=== PATIENT | female | born 1980 | race Caucasian/White ===

== ENCOUNTER 2017-06-16 10:15 | Emergency (ER) | payer BC ==
--- NOTE | 2017-06-16 12:12 | UC ---
FLU HPI - HPI Summary HPI Summary: has the flu-now she has a couple of days of worsening body aches, chills , cough and congestion - History of Current Complaint Chief Complaint: UCGeneralIllness Stated Complaint: FLU LIKE SYMPTOMS Time Seen by Provider: 06/16/17 12:10 Hx Obtained From: Patient Hx Last Menstrual Period: "at the end of March" ?: No - has a 6 months old, is on BCP Onset/Duration: Sudden Onset, Lasting Days, Still Present Severity Currently: Mild Severity Initially: Mild Pain Intensity: 0 Associated Signs & Symptoms: Positive: Fever, Myalgia, Cough, Nasal Congestion, Headache Related Hx: Possible Flu/Infectious Exposure - Allergy/Home Medications Allergies/Adverse Reactions: Allergies Allergy/AdvReac Type Severity Reaction Status Date / Time No Known Allergies Allergy Verified 06/16/17 12:02 Home Medications: Home Medications Dm/P-Ephed/Acetaminoph/Doxylam [Lydia-G[place]wood Plus Cold+Flu Pkt] 1 pow PO Q4H PRN 06/16/17 [History Confirmed 06/16/17] Mercaptopurine TAB* [Purinethol TAB*] 75 mg PO DAILY 06/16/17 [History Confirmed 06/16/17] PMH/Surg Hx/FS Hx/Imm Hx Previously Healthy: No - Crohns GI/ History: Other Other GI/ History: Crohns - Surgical History Surgical History: None - Family History Known Family History: Positive: Hypertension - Social History Occupation: Employed Full-time - teacher Lives: With Family Alcohol Use: None Substance Use Type: None Smoking Status (MU): Never Smoked Tobacco Review of Systems Constitutional: Fever - subjective, Chills, Fatigue Skin: Negative Eyes: Negative ENT: Nasal Discharge Respiratory: Cough Cardiovascular: Negative Gastrointestinal: Negative Genitourinary: Negative Motor: Negative Neurovascular: Negative Musculoskeletal: Arthralgia, Myalgia Neurological: Headache Psychological: Negative Is Patient Immunocompromised?: No All Other Systems Reviewed And Are Negative: Yes Physical Exam Triage Information Reviewed: Yes Appearance: Well-Appearing, No Pain Distress, Well-Nourished Vital Signs: Initial Vital Signs Temp 97.8 F 06/16/17 12:00 Pulse 74 06/16/17 12:00 Resp 16 06/16/17 12:00 BP 102/61 06/16/17 12:00 Pulse Ox 100 06/16/17 12:00 Vital Signs Reviewed: Yes Eye Exam: Normal Eyes: Positive: Conjunctiva Clear ENT Exam: Normal ENT: Positive: Normal ENT inspection, Hearing grossly normal, Pharynx normal, Nasal congestion, Nasal drainage, TMs normal, Uvula midline. Negative: Tonsillar swelling, Tonsillar exudate, Trismus, Muffled voice, Hoarse voice, Dental tenderness, Sinus tenderness Dental Exam: Normal Neck exam: Normal Neck: Positive: Supple, Nontender, No Lymphadenopathy Respiratory Exam: Normal Respiratory: Positive: Chest non-tender, Lungs clear, Normal breath sounds, No respiratory distress, No accessory muscle use Cardiovascular Exam: Normal Cardiovascular: Positive: RRR, No Murmur, Pulses Normal, Brisk Capillary Refill Musculoskeletal Exam: Normal Musculoskeletal: Positive: Strength Intact, ROM Intact, No Edema Neurological Exam: Normal Neurological: Positive: Alert, Muscle Tone Normal Psychological Exam: Normal Skin Exam: Normal Diagnostics - Laboratory Diagnostic Studies Completed/Ordered: Influenza A (+) Flu Course/Dx - Course Course Of Treatment: Tamiflu, increase fluids, tylenol, ibuprofen follow with pcp - Differential Dx/Diagnosis Provider Diagnoses: Influenza A Discharge - Discharge Plan Condition: Stable Disposition: HOME Prescriptions: Oseltamivir CAP* [Tamiflu CAP*] 75 mg PO BID #10 cap Patient Education Materials: Influenza (ED) Forms: *Work Release Referrals: [facility] [Outside] - If Needed
== END 2017-06-16 13:05 | disposition home or self-care (01) ==
LOC: UCCORT 10:15
DX: J09.X2 Influenza due to identified novel influenza A virus with other respiratory manifestations (principal); Z20.828 Contact with and (suspected) exposure to other viral communicable diseases
CPT/HCPCS: 87502; 99212; G0463

== ENCOUNTER 2018-03-03 07:31 | Emergency (ER) | payer BC ==
[2018-03-03 07:52] VITALS: BP 102/53
--- NOTE | 2018-03-03 08:09 | UC ---
Throat Pain/Nasal [place]aine HPI - HPI Summary HPI Summary: Pt presents with c/o nasal congestion, cough, sinus pressure, malaise and fever that has been "off and on" X 4 weeks. - History of Current Complaint Chief Complaint: UCRespiratory Stated Complaint: CONGESTION,SORE THROAT,L EAR PAIN Time Seen by Provider: 03/03/18 07:41 Hx Obtained From: Patient Hx Last Menstrual Period: unknown ?: No Onset/Duration: Sudden Onset, Lasting Weeks, Still Present Severity: Moderate Pain Intensity: 0 Cough: Nonproductive Associated Signs & Symptoms: Positive: Sinus Discomfort, Fever - Epiglottits Risk Factors Epiglottis Risk Factors: Negative - Allergies/Home Medications Allergies/Adverse Reactions: Allergies Allergy/AdvReac Type Severity Reaction Status Date / Time No Known Allergies Allergy Verified 03/03/18 07:42 Home Medications: Home Medications Multivitamins/Minerals TAB* [Theragran/minerals TAB*] 1 tab PO DAILY 03/03/18 [ History Confirmed 03/03/18] PMH/Surg Hx/FS Hx/Imm Hx Previously Healthy: Yes GI/ History: Other - IBS Other GI/ History: IBS - Surgical History Surgical History: None - Family History Known Family History: Positive: Hypertension - Social History Occupation: Employed Full-time Lives: With Family Alcohol Use: None Substance Use Type: None Smoking Status (MU): Never Smoked Tobacco Have You Smoked in the Last Year: No Review of Systems Constitutional: Fever, Chills, Fatigue Skin: Negative Eyes: Negative ENT: Sore Throat, Sinus Congestion, Sinus Pain/Tenderness Respiratory: Cough Cardiovascular: Negative Gastrointestinal: Negative Genitourinary: Negative Motor: Negative Neurovascular: Negative Musculoskeletal: Myalgia Neurological: Headache Psychological: Negative Is Patient Immunocompromised?: No All Other Systems Reviewed And Are Negative: Yes Physical Exam Triage Information Reviewed: Yes Appearance: Ill-Appearing Vital Signs: Initial Vital Signs Temp 99.7 F 03/03/18 07:45 Pulse 109 03/03/18 07:45 Resp 16 03/03/18 07:45 BP 102/53 03/03/18 07:45 Pulse Ox 98 03/03/18 07:45 Vital Signs Reviewed: Yes Eye Exam: Normal ENT: Positive: Nasal congestion, Nasal drainage, Sinus tenderness Dental Exam: Normal Neck exam: Normal Respiratory Exam: Normal Cardiovascular Exam: Normal Musculoskeletal Exam: Normal Neurological Exam: Normal Psychological Exam: Normal Skin Exam: Normal Diagnostics - Laboratory Diagnostic Studies Completed/Ordered: rapid flu: negative Throat Pain/Nasal Course/Dx - Differential Dx/Diagnosis Differential Diagnosis/HQI/PQRI: Influenza, Sinusitis, URI Provider Diagnoses: sinusitis Discharge - Sign-Out/Discharge Documenting (check all that apply): Patient Departure All imaging exams completed and their final reports reviewed: No Studies - Discharge Plan Condition: Stable Disposition: HOME Prescriptions: Amoxicillin PO (*) [Amoxicillin 875 MG (*)] 875 mg PO Q12H #20 tab Guaifenesin/Pseudoephedrne HCl [Mucinex D ER 600-60 mg Tablet] 1 each PO Q12H # 14 tab.er.12h Patient Education Materials: Sinusitis (ED) Referrals: [facility] [Outside] - If Needed No Primary Care Phys,NOPCP [Primary Care Provider] - Additional Instructions: Please follow up with your PCP as soon as needed. If you do not have a PCP please, establish care with one as soon as possible. - Billing Disposition and Condition Condition: STABLE Disposition: Home
== END 2018-03-03 08:22 | disposition home or self-care (01) ==
LOC: UCCORT 07:31
DX: J32.9 Chronic sinusitis, unspecified (principal); K58.9 Irritable bowel syndrome, unspecified
CPT/HCPCS: 99212; G0463

== ENCOUNTER 2019-03-23 15:34 | Emergency (ER) | payer BC ==
[2019-03-23 15:51] VITALS: BP 119/77
--- NOTE | 2019-03-23 16:15 | UC ---
Laceration HPI - HPI Summary HPI Summary: Pt presents with c/o laceration to left thumb. Pt reports that she was reaching in one of her kitchendrawers and cut her left thimb on metal mandolin slicer. Pt states that she is UTD with tetanus. - History Of Current Complaint Chief Complaint: Suman Stated Complaint: LACERATION LEFT THUMB Time Seen by Provider: 03/23/19 15:53 Hx Obtained From: Patient Hx Last Menstrual Period: 2 weeks ago Laceration Location: Finger - left thumb Mechanism Of Injury: Sharp Trauma Onset/Duration: Sudden Onset Severity: Mild Pain Intensity: 1 Aggravating Factors: Position, Movement Related History: Dominant Hand Right - Allergies/Home Medications Allergies/Adverse Reactions: Allergies Allergy/AdvReac Type Severity Reaction Status Date / Time No Known Allergies Allergy Verified 03/23/19 15:45 Home Medications: Home Medications FLUoxetine CAP* [Prozac CAP*] 1 cap DAILY 03/23/19 [History Confirmed 03/23/19] PMH/Surg Hx/FS Hx/Imm Hx Previously Healthy: Yes - Surgical History Surgical History: None - Family History Known Family History: Positive: Hypertension - Social History Occupation: Employed Full-time Lives: With Family Alcohol Use: None Substance Use Type: None Smoking Status (MU): Never Smoked Tobacco Have You Smoked in the Last Year: No - Immunization History Vaccination Up to Date: Yes Review of Systems All Other Systems Reviewed And Are Negative: Yes Constitutional: Positive: Negative Skin: Positive: Other - laceration to left thumb Eyes: Positive: Negative ENT: Positive: Negative Respiratory: Positive: Negative Cardiovascular: Positive: Negative Gastrointestinal: Positive: Negative Genitourinary: Positive: Negative Motor: Positive: Negative Neurovascular: Positive: Negative Musculoskeletal: Positive: Negative Neurological: Positive: Negative Psychological: Positive: Negative Is Patient Immunocompromised?: No Physical Exam Triage Information Reviewed: Yes Appearance: Well-Appearing Vital Signs: Initial Vital Signs Temp 98.8 F 03/23/19 15:46 Pulse 88 03/23/19 15:46 Resp 16 03/23/19 15:46 BP 119/77 03/23/19 15:46 Pulse Ox 96 03/23/19 15:46 Vital Signs Reviewed: Yes Eye Exam: Normal ENT Exam: Normal Dental Exam: Normal Neck exam: Normal Respiratory Exam: Normal Respiratory: Positive: No respiratory distress Musculoskeletal Exam: Normal Neurological Exam: Normal Psychological Exam: Normal Skin Exam: Other - laceration to left thumb Laceration Repair - Laceration Repair 2 Description: Linear Laceration Size After Repair: Length (cm) - 1, Width (mm) - 2, Depth (mm) - 2 Modified For Repair: No Cleansing Completed Via Routine Prep: Yes Irrigation With Pressure Irrigation Device: Yes Closure Material: Skin Adhesive, SteriStrips Closure Method: Single Layer Suture Of: Skin - lateral aspect of left thumb nail bed Laceration Course/Dx - Differential Dx - Laceration/Wound Differental Diagnoses: Laceration - Diagnosis Provider Diagnosis: Laceration of left thumb Discharge ED - Sign-Out/Discharge Documenting (check all that apply): Patient Departure All imaging exams completed and their final reports reviewed: No Studies - Discharge Plan Condition: Stable Disposition: HOME Patient Education Materials: Skin Adhesive Care (ED), Steristrips (ED) Referrals: Ngoc Alicea CNM [Primary Care Provider] - If Needed - Billing Disposition and Condition Condition: STABLE Disposition: Home
== END 2019-03-23 16:21 | disposition home or self-care (01) ==
LOC: UCCORT 15:34
DX: S61.012A Laceration without foreign body of left thumb without damage to nail, initial encounter (principal); W27.4XXA Contact with kitchen utensil, initial encounter; Y93.89 Activity, other specified; Y92.000 Kitchen of unspecified non-institutional (private) residence as the place of occurrence of the external cause
CPT/HCPCS: 12001; 99211; G0463

== ENCOUNTER 2019-06-29 18:49 | Emergency (ER) | payer BC ==
--- OUTSIDE RECORDS SUMMARY | 2019-06-29 19:39 | XMS REPORT | Continuity of Care Document ---
:1980 External Reference #:[id number] Author Name Sandie Caraballo MD Address [address] [place] [address] Care Team Providers Name Role Phone Sandie Caraballo MD - Internal Care Team Information Measurement Psychologist [phone] Medicine Problems Active Problems Provider Date Insomnia Nay Daniels MD Onset: 11/13/2018 Crohn's disease Nay Daniels MD Onset: 11/13/2018 Anxiety state Nay Daniels MD Onset: 11/13/2018 Social History Type Date Description Comments Sex Unknown Tobacco Use Start: Unknown Never Smoked Cigarettes Smoking Status Reviewed: 03/24/19 Never Smoked Cigarettes ETOH Use Currently consumes alcohol socially Tobacco Use Start: Unknown Patient has never smoked Allergies, Adverse Reactions, Alerts Active Allergies Reaction Severity Comments Date Iron 11/13/2018 Inactive Allergies NKDA 03/06/2016 Medications Active Medications SIG Qnty Indications Ordering Provider Date Mercaptopurine 1 by mouth India Liang M.D. 03/06/2016 75mg Tablets every day Shar[place]el 1tab by mouth Unknown 0.35mg Tablets once a day Multivitamin Adult 1 by mouth Unknown Tablets every day History Medications Fluoxetine HCL 1 by mouth 30tabs F41.9 Nay Daniels MD 12/09/2018 - 10mg every day 03/24/2019 Tablets Immunizations Description No Information Available Vital Signs Date Vital Result Comment 06/02/2019 7:32am BP Systolic Sitting Left Arm 100 mmHg BP Diastolic Sitting Left Arm 64 mmHg Body Temperature 97.7 F Heart Rate 102 /min Respiratory Rate 18 /min Height 62 inches 5'2" Weight 114.00 lb BMI (Body Mass Index) 20.8 kg/m2 BSA (Body Surface Area) 1.51 m2 [place] body weight in kilograms 50 kg O2 % BldC Oximetry 99 % Ra 03/24/2019 7:28am BP Systolic Sitting Left Arm 104 mmHg BP Diastolic Sitting Left Arm 74 mmHg Body Temperature 98.7 F Heart Rate 87 /min Respiratory Rate 16 /min Height 62 inches 5'2" Weight 113.00 lb BMI (Body Mass Index) 20.7 kg/m2 BSA (Body Surface Area) 1.50 m2 [place] body weight in kilograms 50 kg O2 % BldC Oximetry 98 % Ra Results Test Acquired Date Facility Test Result H/L Range Note CBC 05/13/2019 [facility] White Blood 5.6 K/uL Normal 3.1-10.7 1 W/Automated [address] [place] [place] [address] [phone] Red Blood Count 3.83 M/uL Low 3.90-5.40 Hemoglobin 12.7 gm/dL Normal 11.6-15.8 Hematocrit 39.1 % Normal 36.0-46.1 Mean Cell Volume 102.1 fl High 80.9-99.0 Mean Corpuscular HGB 33.2 pg High 25.9-32.7 Mean Corpuscular HGB Conc 32.5 g/dL Normal 30.8-34.3 Platelet Count 232 K/uL Normal 155-360 Red Cell Distri Width SD 49.3 fl High 36-47 Red Cell Distri Width %CV 13.2 % Normal 11.7-14.4 Mean Platelet Volume 10.5 fl Normal 8.9-12.4 Neut% 70.8 % Normal 40.4-72.8 Lymph % 20.4 % Normal 20.0-42.0 [place] % 5.2 % Normal 4.3-13.2 Eo% 2.7 % Normal 0.0-6.6 Bas% 0.4 % Normal 0.0-1.1 Immature Grans 0.5 % Normal 0.0-5.0 NRBC % 0.0 /100WBC < 10/ 100 WBC Neut# 3.95 K/uL Normal 1.8-7.0 Lymph # 1.14 K/uL Normal 1.0-4.0 [place] # 0.29 K/uL Low 0.3-0.9 Eos # 0.15 K/uL Normal 0.0-0.5 Baso # 0.02 K/uL Normal 0.0-0.1 Immature Grans Absolute 0.03 K/uL NRBC # 0.00 K/uL Glycohemoglobin 05/13/2019 [facility] Glycohemoglobin 4.9 % Normal 4.2-6.[address] (A1c) [place], [place] [id number] [phone] eAG 94 mg/dL Laboratory 05/13/2019 [facility] Osmolality,Serum 280 Normal 275-295 test finding [address] mOsm/kg [place], [place] [id number] [phone] Liver 05/13/2019 [facility] Total Protein 7.1 g/dL Normal 6.4-8.[address] [place] [place] [address] [phone] Albumin 2.9 g/dL Low 3.4-5.0 Globulin 4.2 g/dL Normal 1.9-4.3 Alb/Glob 0.7 ratio Bilirubin,Total 0.9 mg/dL Normal 0.2-1.0 Bilirubin,Direct 0.2 mg/dL Normal 0.0-0.2 Bilirubin,Indirect 0.7 mg/dL Normal 0.0-0.9 Sgot/Ast 23 U/L Normal 15-37 SGPT/Alt 21 U/L Normal 12-78 Alkaline Phosphatase 62 U/L Normal 45-117 Comprehensive 05/13/2019 [facility] Glucose 85 mg/dL Normal 74-106 Metabolic Panel [address] [place], [place] [id number] [phone] BUN 9 mg/dL Normal 7-18 Creatinine 0.8 mg/dL Normal 0.6-1.3 Glom Filtration Rate, Estimate >60 mL/min >60 If >60 mL/min >60 3 BUN/Creat 11.2 ratio Sodium 134 mmol/L Low 136-145 Potassium 4.1 mmol/L Normal 3.5-5.1 Chloride 104 mmol/L Normal 98-107 Carbon Dioxide 25 mmol/L Normal 21-32 Anion Gap 5 mEq/L Low 8-16 Calcium 8.5 mg/dL Normal 8.5-10.1 LDL Cholesterol 05/13/2019 [facility] Cholesterol 282 mg/dL High <200 4 Profile [address] [place], [place] [id number] [phone] Triglycerides 114 mg/dL <150 5 HDL Cholesterol 120 mg/dL >40 6 LDL-Cholesterol 139 mg/dL < 100 7 Laboratory 05/13/2019 [facility] Osmolality,Urine 527 Normal 250-900 test finding [address] mOsm/kg [place], [place] [id number] [phone] Urine Sodium, Random 105 mEq/L Thyroid Stim Hormone 1.63 uIU/mL Normal 0.30-4.20 Hepatitis 05/13/2019 [facility] Hepatitis A Negative Negative Evaluation [address] [place] [address] [phone] HBsAg Screen [Ref Lab] Negative Negative Hepatitis B Core IgM Negative Negative HCV Signal/Cutoff ratio < 0.1 s/corat 0.0-0.9 8 Comprehensive 12/11/2018 [facility] Glucose 89 mg/dL Normal 74-106 9 Metabolic Panel [address] [place] [address] [phone] BUN 10 mg/dL Normal 7-18 Creatinine 0.8 mg/dL Normal 0.6-1.3 Glom Filtration Rate, Estimate >60 mL/min >60 If >60 mL/min >60 10 BUN/Creat 12.5 ratio Sodium 133 mmol/L Low 136-145 Potassium 4.1 mmol/L Normal 3.5-5.1 Chloride 102 mmol/L Normal 98-107 Carbon Dioxide 24 mmol/L Normal 21-32 Anion Gap 7 mEq/L Low 8-16 Calcium 8.7 mg/dL Normal 8.5-10.1 Total Protein 7.7 g/dL Normal 6.4-8.2 Albumin 3.2 g/dL Low 3.4-5.0 Globulin 4.5 g/dL High 1.9-4.3 Alb/Glob 0.7 ratio Bilirubin,Total 0.9 mg/dL Normal 0.2-1.0 Sgot/Ast 19 U/L Normal 15-37 SGPT/Alt 15 U/L Normal 12-78 Alkaline Phosphatase 67 U/L Normal 45-117 Ua RFX Micro & 12/11/2018 [facility] Urine Color DK YELLOW Yellow Culture II [address] [place] [address] [phone] Urine Clarity CLEAR Clear Urine Glucose - Dipstick NEGATIVE mg/dL Negative Urine Bilirubin - Dipstick MODERATE Abnormal Negative Urine Ketone NEGATIVE mg/dL Negative Urine Specific [place] <= 1.005 Low 1.010-1.030 Urine Blood TRACE Negative Urine PH 6.5 Normal 6.5-7.5 Urine Protein - Dipstick NEGATIVE mg/dL Negative Urine Urobilinogen - Dipstick 1.0 E.U./dL Normal 0.2-1.0 Urine Nitrite - Dipstick NEGATIVE Negative Urine Leuk Esterase TRACE Abnormal Negative Urine RBC 0-2 rbc/hpf 0-2 Urine WBC 0-2 wbc/hpf 0-7 Urine Epithelial Cells MODERATE /lpf None Seen 11 Urine Bacteria FEW None Seen Source: URINE, CLEAN CAT <SEE NOTE> 12 1 E87.1 2 Elevated levels of HbA1c suggest the need for more aggressive treatment of glycemia. The [place] [employer] recommends that a primary goal of therapy should be a HbA1c of <7% and that physicians should re-evaluate the treatment regimen in patients with HbA1c values consistently >8%. 3 Note: Persistent reduction for 3 months or more in an eGFR <60 mL/min/1.73 m2 defines CKD. Patients with eGFR values >/=60 mL/min/1.73 m2 may also have CKD if evidence of persistent proteinuria is present. The original MDRD equation for estimated GFR is not valid for patients less than 18 years of age. Additional information may be found at www.kdoqi.org. 4 Reference Guidelines*: Desirable: ........... < 200 mg/dL Borderline High: ..... 200-239 mg/dL High: ................ >= 240 mg/dL * The National Cholesterol Education Program (NCEP) 5 Reference Guidelines*: Normal: ............. < 150 mg/dL Borderline High: .... 150-199 mg/dL High: ............... 200-499 mg/dL Very High: .......... > 500 mg/dL * Source: National Cholesterol Education Program (NCEP) 6 Reference Guidelines*: Low HDL: ..... < 40 mg/dL Normal: ..... 40-60 mg/dL Desirable: ... > 60 mg/dL *The National Cholesterol Education Program(NCEP) 7 Reference Guidelines*: Optimal:........... <100 mg/dL Near Optimal....... 100-129 mg/dL Borderline High.... 130-159 mg/dL High............... 160-189 mg/dL Very High.......... >=190 mg/dL * Source: National Cholesterol Education Program (NCEP) 8 INFCE Result Units: s/co ratio Negative: < 0.8 Indeterminate: 0.8 - 0.9 Positive: > 0.9 The CDC recommends that a positive HCV antibody result be followed up with a HCV Nucleic Acid Amplification test (429864). Performed at: - [facility] [address] [id number] Metabolic Specialist: Felicia Jimenez MD, Phone: [phone] 9 G47.00 E80.6 R77.0 10 Note: Persistent reduction for 3 months or more in an eGFR <60 mL/min/1.73 m2 defines CKD. Patients with eGFR values >/=60 mL/min/1.73 m2 may also have CKD if evidence of persistent proteinuria is present. The original MDRD equation for estimated GFR is not valid for patients less than 18 years of age. Additional information may be found at www.kdoqi.org. 11 POSSIBLE UROGENITAL CONTAMINATION. 12 URINE, CLEAN CATCH Procedures Date Code Description Status 12/09/2018 11360 Brief Emotional/Behav Assessment W/ Scoring Doc Per Completed Standard Inst 12/05/2018 80998601 Colonoscopy Completed 05/14/2015 823035597 Bone Mineral Density Test Completed Medical Devices Description No Information Available Encounters Type Date Location Provider Dx Diagnosis Office Visit 06/02/2019 [facility] Rashmi K50.90 Crohn's disease, 7:30a Office MD Sandie unspecified, without complications F41.9 Anxiety disorder, unspecified A08.4 Viral intestinal infection, unspecified Office Visit 03/24/2019 7:30a [facility]mi F41.9 Anxiety disorder, Office MD Sandie unspecified K50.90 Crohn's disease, unspecified, without complications E87.1 Hypo-osmolality and hyponatremia Z12.39 Encounter for oth screening for malignant neoplasm of breast Z28.21 Immunization not carried out because of patient refusal Office Visit 12/23/2018 8:45a [facility] Jenni, F41.9 Anxiety disorder, Office CAITY Fofana unspecified E80.6 Other disorders of bilirubin metabolism Office Visit 12/09/2018 8:30a [facility] Nixon, G47.00 Insomnia, Office Ngoc MS, unspecified STOCK ROLLER-C, CN K50.90 Crohn's disease, unspecified, without complications F41.9 Anxiety disorder, unspecified E78.2 Mixed hyperlipidemia E83.51 Hypocalcemia E80.6 Other disorders of bilirubin metabolism R77.0 Abnormality of albumin Assessments Date Code Description Provider 06/02/2019 K50.90 Crohn's disease, unspecified, without Sandie Caraballo MD complications 06/02/2019 F41.9 Anxiety disorder, unspecified Sandie Caraballo MD 06/02/2019 A08.4 Viral intestinal infection, Sandie Caraballo MD unspecified 03/24/2019 F41.9 Anxiety disorder, unspecified Sandie Caraballo MD 03/24/2019 K50.90 Crohn's disease, unspecified, without Sandie Caraballo MD complications 03/24/2019 E87.1 Hypo-osmolality and hyponatremia Sandie Caraballo MD 03/24/2019 Z12.39 Encounter for other screening for Sandie Caraballo MD malignant neoplasm of breast 03/24/2019 Z28.21 Immunization not carried out because Sandie Caraballo MD of patient refusal 12/23/2018 R77.0 Abnormality of albumin Ngoc Alicea, MS, ST[employer] ROLLER-C, CNM 12/23/2018 F41.9 Anxiety disorder, unspecified Sylvia Arteaga PA 12/23/2018 E80.6 Other disorders of bilirubin Sylvia Arteaga PA metabolism 12/23/2018 E80.6 Other disorders of bilirubin Ngoc Alicea, MS, [employer]ER-C, metabolism CN 12/09/2018 G47.00 Insomnia, unspecified Gagviktor, Ngoc, MS, [employer]-C, [facility] 12/09/2018 K50.90 Crohn's disease, unspecified, without Gagviktor, Ngoc, MS, [employer]C, complications [facility] 12/09/2018 F41.9 Anxiety disorder, unspecified Ngoc Alicea, MS, [employer]C, [facility] 12/09/2018 E78.2 Mixed hyperlipidemia Ngoc Alicea, MS, [employer]C, [facility] 12/09/2018 E83.51 Hypocalcemia Nixon, Ngoc, MS, [employer], [facility] 12/09/2018 E80.6 Other disorders of bilirubin Ngoc Alicea, MS, [employer]C, metabolism [facility] 12/09/2018 R77.0 Abnormality of albumin Ngoc Alicea, MS, [employer]C, [facility] Plan of Treatment Future Appointment(s):12/01/2019 7:30 am - Sandie Caraballo MD at Primary Care [id number]/02/2019 - Sandie Caraballo MDK50.90 Crohn's disease , unspecified, without complicationsNew Labs:Comprehensive Metabolic Panel, Scheduled: 11/24/19CBC W/Automated Diff, Scheduled: 11/24/19LDL Cholesterol Profile, Scheduled: 11/24/19Follow up:f/u 6 months labs prior to ohtdxQ56.9 Anxiety disorder, aknuxilyipzD27.4 Viral intestinal infection, unspecified Functional Status Functional Condition Comment Date Status Independent with all ADL's Active Independent with all IADL's Active Mental Status Description No Information Available Referrals Description No Information Available
[2019-06-29 19:44] VITALS: BP 117/61
[2019-06-29] MEDS ORDERED: Acetaminophen TAB* 325 MG PO ONE (19:49)
--- NOTE | 2019-06-29 19:58 | UC ---
FLU HPI - HPI Summary HPI Summary: cough begining 6 days ago, body aches and fever - History of Current Complaint Chief Complaint: UCGeneralIllness Stated Complaint: COUGH, ACHY, CONGESTION Time Seen by Provider: 06/29/19 19:55 Hx Obtained From: Patient Hx Last Menstrual Period: 05/28/19 ?: No Onset/Duration: Gradual Onset, Lasting Days - 6, Still Present Pain Intensity: 5 Pain Scale Used: 0-10 Numeric Associated Signs & Symptoms: Positive: Fever, Myalgia, Cough - Allergy/Home Medications Allergies/Adverse Reactions: Allergies Allergy/AdvReac Type Severity Reaction Status Date / Time No Known Allergies Allergy Verified 06/29/19 19:45 Home Medications: Home Medications Mercaptopurine TAB* [Purinethol TAB*] 75 mg PO DAILY 06/16/17 [History Confirmed 06/29/19] Azithromycin TAB* [Zithromax TAB (Z-YOHANNES) 250 mg #6 tabs] 250 mg PO DAILY #4 tab 06/29/19 [Rx] Norethindrone [Sharobel] 0.35 mg PO DAILY 06/29/19 [History Confirmed 06/29/19] PMH/Surg Hx/FS Hx/Imm Hx Previously Healthy: No GI/ History: Other Other GI/ History: Crohns - Surgical History Surgical History: Yes Surgery Procedure, Year, and Place: - Family History Known Family History: Positive: Hypertension - Social History Occupation: Employed Full-time Lives: With Family Alcohol Use: None Substance Use Type: None Smoking Status (MU): Never Smoked Tobacco Have You Smoked in the Last Year: No - Immunization History Vaccination Up to Date: Yes Review of Systems All Other Systems Reviewed And Are Negative: Yes Constitutional: Positive: Fever, Chills Skin: Positive: Negative Eyes: Positive: Negative ENT: Positive: Nasal Discharge Respiratory: Positive: Cough Cardiovascular: Positive: Negative Gastrointestinal: Positive: Negative Genitourinary: Positive: Negative Motor: Positive: Negative Neurovascular: Positive: Negative Musculoskeletal: Positive: Negative Neurological/Mental Status: Positive: Negative Psychological: Positive: Negative Is Patient Immunocompromised?: No Physical Exam Triage Information Reviewed: Yes Appearance: Well-Appearing, No Pain Distress, Well-Nourished Vital Signs: Initial Vital Signs Temp 100.4 F 06/29/19 19:41 Pulse 113 06/29/19 19:41 Resp 20 06/29/19 19:41 BP 117/61 06/29/19 19:41 Pulse Ox 97 06/29/19 19:41 Vital Signs Reviewed: Yes Eye Exam: Normal Eyes: Positive: Conjunctiva Clear ENT Exam: Normal ENT: Positive: Normal ENT inspection, Hearing grossly normal, TMs normal, Uvula midline. Negative: Nasal congestion, Trismus, Muffled voice, Hoarse voice, Sinus tenderness Dental Exam: Normal Neck exam: Normal Neck: Positive: Supple, Nontender, No Lymphadenopathy Respiratory Exam: Normal Respiratory: Positive: Chest non-tender, Lungs clear, Normal breath sounds, No respiratory distress, No accessory muscle use Cardiovascular Exam: Normal Cardiovascular: Positive: RRR, No Murmur, Pulses Normal, Brisk Capillary Refill Musculoskeletal Exam: Normal Musculoskeletal: Positive: Strength Intact, ROM Intact, No Edema Neurological Exam: Normal Neurological: Positive: Alert, Muscle Tone Normal Psychological Exam: Normal Skin Exam: Normal Diagnostics - Laboratory Lab Results: Influenza A/B - Flu Course/Dx - Course Course Of Treatment: increase fluids, tylenol for pain fever zithromax follow with pcp prn - Differential Dx/Diagnosis Provider Diagnosis: Bronchitis Discharge ED - Sign-Out/Discharge Documenting (check all that apply): Patient Departure All imaging exams completed and their final reports reviewed: No Studies - Discharge Plan Condition: Stable Disposition: HOME Prescriptions: Azithromycin TAB* [Zithromax TAB (Z-YOHANNES) 250 mg #6 tabs] 250 mg PO DAILY #4 tab Patient Education Materials: Acute Bronchitis (ED), Bronchospasm (ED), How to Use a Metered-Dose Inhaler and a Spacer (ED) Referrals: Ngoc Alicea CNM [Primary Care Provider] - If Needed - Billing Disposition and Condition Condition: STABLE Disposition: Home - Attestation Statements Provider Attestation: This patient was not seen by me. I was available for consult. Chart reviewed. AMY
[2019-06-29 20:05] LABS: Influenza A Molecular Negative (Negative); Influenza B Molecular Negative (Negative)
[2019-06-29] MEDS ORDERED: Albuterol HFA INHALER* 8 gm MDI INH ONE (20:14)
[2019-06-29] MEDS ORDERED: Azithromycin TAB* 250 MG PO ONE (20:14)
== END 2019-06-29 20:33 | disposition home or self-care (01) ==
LOC: UCCORT 18:49
DX: J40 Bronchitis, not specified as acute or chronic (principal)
CPT/HCPCS: 99213; A9270-GY; G0463